=== PATIENT | male | born 1975 | race Native Hawaiian/Other Pacific Islander ===

== ENCOUNTER 2019-02-22 15:35 | Inpatient (IN) | payer MEDICAID ==
[~2019-02-22] VITALS: Ht 177.8 cm; Wt 70.4 kg
[2019-02-23 00:10] VITALS: BP 122/74
[2019-02-23] MEDS: ZOLPIDEM TARTRATE 10 MG TABLET PO PRN (00:57)
[2019-02-23] MEDS: HALOPERIDOL 5 MG TABLET PO PRN (05:57)
[2019-02-23] MEDS: LORazepam 2 MG TABLET PO PRN (05:57)
[2019-02-23] MEDS ORDERED: MAGNESIUM HYDROXIDE SUSPENSION 30 ML UDCUP PO PRN (07:00)
[2019-02-23] MEDS ORDERED: DOCUSATE SODIUM 100 MG CAPSULE PO PRN (07:00)
[2019-02-23] MEDS ORDERED: ONDANSETRON HCL 4 MG TABLET PO PRN (07:00)
[2019-02-23] MEDS ORDERED: MAG HYDROX/AL HYDROX/SIMETH ES 30 ML SUSPENSION UDCUP PO PRN (07:00)
[2019-02-23] MEDS ORDERED: GuaiFENesin/D-METHORPHAN [SUGAR-FREE] 200-20MG/10 ML SYRUP UDCUP PO PRN (07:00)
[2019-02-23] MEDS ORDERED: LOPERAMIDE HCL 2 MG CAPSULE PO PRN (07:00)
[2019-02-23] MEDS ORDERED: PETROLATUM,WHITE 28 GM JELLY TP PRN (07:00)
[2019-02-23] MEDS ORDERED: NICOTINE 14 MG/24 HOUR PATCH TD PRN (07:00)
[2019-02-23] MEDS ORDERED: CloNIDine HCL 0.1 MG TABLET PO PRN (07:00)
[2019-02-23 08:05] LABS: BASOPHILS % (AUTO) 1.3 % (0.0-2.0); EOSINOPHILS % (AUTO) 3.1 % (1.0-6.0); HEMATOCRIT 41.7 % (41-53); HEMOGLOBIN 13.9 g/dL (13.5-17.5); LYMPHOCYTES # (AUTO) 1.1 K/uL (1.0-4.8); LYMPHOCYTES % (AUTO) 26.5 % (22.0-44.0); MEAN CORPUSCULAR HEMOGLOBIN 32.6 pg (26.0-34.0); MEAN CORPUSCULAR HGB CONC 33.3 G/dL (31.0-37.0); MEAN CORPUSCULAR VOLUME 98 fL (80-100); MONOCYTES # (AUTO) 0.6 K/uL (0.1-1.0); MONOCYTES % (AUTO) 15.9 % (2.0-9.0); NEUTROPHILS # (AUTO) 2.1 K/uL (1.8-7.7); NEUTROPHILS % (AUTO) 53.2 % (40.0-70.0); PLATELET COUNT (AUTO) 268 K/uL (150-450); RED BLOOD CELL COUNT(AUTO) 4.26 MIL/uL (4.50-5.90); RED CELL DISTRIBUTION WIDTH 13.2 % (11.5-14.5)
[2019-02-23 08:08] LABS: HEMOGLOBIN A1C 5.4 % (4.5-6.2)
[2019-02-23 08:29] VITALS: BP 115/62
[2019-02-23 08:40] LABS: ALANINE AMINOTRANSFERASE 32 U/L (12-78); ALBUMIN 3.3 g/dL (3.4-5.0); ALKALINE PHOSPHATASE 68 U/L (46-116); ANION GAP 11 mmol/L (8-16); ASPARTATE AMINOTRANSFERASE 22 U/L (15-37); BILIRUBIN,TOTAL 0.5 mg/dL (0.1-1.0); CARBON DIOXIDE 23 mmol/L (22-29); CHLORIDE 101 mmol/L (98-107); CHOL/HDL RATIO 2.5 (4.2-7.3); CHOLESTEROL 150 mg/dL (131-200); CREATININE 1.27 mg/dL (0.60-1.30); FREE T4 (FREE THYROXINE) 1.23 ng/dL (0.76-1.46); GLOMERULAR FILTR. RATE CALC > 60 mL/min (>60); GLUCOSE,RANDOM 91 mg/dL (70-110); HDL CHOLESTEROL 61 mg/dL (40-60); LDL CHOL (CALC.) 83 mg/dL (0-130); POTASSIUM 4.5 mmol/L (3.5-5.1); SODIUM SERUM 135 mmol/L (136-145); THYROID STIMULATING HORMONE 0.93 uIU/mL (0.36-3.74); TOTAL PROTEIN, SERUM 6.4 g/dL (6.4-8.2); TRIGLYCERIDES 29 mg/dL (15-150); UREA NITROGEN, BLOOD 15 mg/dL (7-18)
[2019-02-23] MEDS: DIVALPROEX SODIUM 500 MG DR TABLET PO SCH ×2 (10:08→16:02)
[2019-02-23] MEDS: ALBUTEROL SULFATE HFA 90 MCG/PUFF 8 GM INHALER IH PRN (10:15)
[2019-02-23 16:23] VITALS: BP 114/64
[2019-02-23 17:21] VITALS: BP 125/61
[2019-02-23] MEDS: QUEtiapine FUMARATE 200 MG TABLET PO SCH (21:46)
[2019-02-24] MEDS: ALBUTEROL SULFATE HFA 90 MCG/PUFF 8 GM INHALER IH PRN ×2 (06:34→12:42)
[2019-02-24 08:33] VITALS: BP 118/64
[2019-02-24] MEDS: DIVALPROEX SODIUM 500 MG DR TABLET PO SCH ×2 (08:33→16:16)
[2019-02-24] MEDS: IBUPROFEN 400 MG TABLET PO PRN (08:33)
[2019-02-24] MEDS: ACETAMINOPHEN 325 MG TABLET PO PRN (12:40)
[2019-02-24 16:07] VITALS: BP 123/70
[2019-02-24] MEDS: LORazepam 2 MG TABLET PO PRN (18:56)
[2019-02-24] MEDS: HALOPERIDOL 5 MG TABLET PO PRN (19:27)
[2019-02-24] MEDS: QUEtiapine FUMARATE 200 MG TABLET PO SCH (20:05)
[2019-02-24] MEDS: ZOLPIDEM TARTRATE 10 MG TABLET PO PRN (20:34)
[2019-02-25 05:20] VITALS: BP 107/60
[2019-02-25] MEDS: ACETAMINOPHEN 325 MG TABLET PO PRN ×2 (05:25→15:59)
[2019-02-25] MEDS: ALBUTEROL SULFATE HFA 90 MCG/PUFF 8 GM INHALER IH PRN ×2 (05:26→16:02)
[2019-02-25] MEDS: QUEtiapine FUMARATE 200 MG TABLET PO SCH ×2 (09:14→20:21)
[2019-02-25] MEDS: DIVALPROEX SODIUM 500 MG DR TABLET PO SCH ×2 (09:14→15:59)
[2019-02-25 09:59] VITALS: BP 106/52
[2019-02-25 16:03] VITALS: BP 102/60
[2019-02-25] MEDS: HALOPERIDOL 5 MG TABLET PO PRN (19:56)
[2019-02-25] MEDS: LORazepam 2 MG TABLET PO PRN (19:56)
[2019-02-25] MEDS: ZOLPIDEM TARTRATE 10 MG TABLET PO PRN (22:27)
[2019-02-26 02:55] VITALS: BP 101/53
[2019-02-26] MEDS: ACETAMINOPHEN 325 MG TABLET PO PRN (03:00)
[2019-02-26 05:45] VITALS: BP 108/53
[2019-02-26] MEDS: IBUPROFEN 400 MG TABLET PO PRN (05:50)
[2019-02-26] MEDS: QUEtiapine FUMARATE 200 MG TABLET PO SCH ×2 (08:45→20:13)
[2019-02-26] MEDS: DIVALPROEX SODIUM 500 MG DR TABLET PO SCH ×2 (08:45→17:22)
[2019-02-26 09:41] VITALS: BP 129/78
[2019-02-26] MEDS: ALBUTEROL SULFATE HFA 90 MCG/PUFF 8 GM INHALER IH PRN (15:33)
[2019-02-26 16:20] VITALS: BP 118/68
[2019-02-26] MEDS: LORazepam 2 MG TABLET PO PRN (18:01)
[2019-02-26] MEDS: ZOLPIDEM TARTRATE 10 MG TABLET PO PRN (20:53)
[2019-02-27] MEDS: QUEtiapine FUMARATE 200 MG TABLET PO SCH ×2 (08:22→20:07)
[2019-02-27] MEDS: DIVALPROEX SODIUM 500 MG DR TABLET PO SCH ×2 (08:22→16:19)
[2019-02-27] MEDS: ALBUTEROL SULFATE HFA 90 MCG/PUFF 8 GM INHALER IH PRN ×2 (08:24→14:33)
[2019-02-27 12:45] VITALS: BP 117/67
[2019-02-27] MEDS: LORazepam 2 MG TABLET PO PRN (16:19)
[2019-02-27 16:29] VITALS: BP 131/74
[2019-02-27] MEDS: ZOLPIDEM TARTRATE 10 MG TABLET PO PRN (21:08)
[2019-02-28] MEDS: ALBUTEROL SULFATE HFA 90 MCG/PUFF 8 GM INHALER IH PRN (03:24)
[2019-02-28] MEDS: ACETAMINOPHEN 325 MG TABLET PO PRN (03:24)
[2019-02-28 08:10] VITALS: BP 121/74
[2019-02-28] MEDS: QUEtiapine FUMARATE 200 MG TABLET PO SCH ×2 (08:16→20:54)
[2019-02-28] MEDS: LORazepam 2 MG TABLET PO PRN ×2 (08:16→12:37)
[2019-02-28] MEDS: DIVALPROEX SODIUM 500 MG DR TABLET PO SCH ×2 (08:16→16:41)
[2019-02-28] MEDS: HALOPERIDOL 5 MG TABLET PO PRN (12:37)
[2019-03-01] MEDS: ACETAMINOPHEN 325 MG TABLET PO PRN (05:03)
[2019-03-01 08:05] VITALS: BP 116/75
[2019-03-01] MEDS: QUEtiapine FUMARATE 200 MG TABLET PO SCH ×2 (08:11→20:46)
[2019-03-01] MEDS: DIVALPROEX SODIUM 250 MG DR TABLET PO SCH ×2 (08:11→20:46)
[2019-03-01] MEDS: ALBUTEROL SULFATE HFA 90 MCG/PUFF 8 GM INHALER IH PRN ×2 (08:14→15:50)
[2019-03-01] MEDS: HALOPERIDOL 5 MG TABLET PO PRN (10:35)
[2019-03-01] MEDS: LORazepam 2 MG TABLET PO PRN (10:35)
[2019-03-01] MEDS: ZOLPIDEM TARTRATE 10 MG TABLET PO PRN (23:44)
[2019-03-02] MEDS: ACETAMINOPHEN 325 MG TABLET PO PRN (05:38)
[2019-03-02] MEDS: DIVALPROEX SODIUM 250 MG DR TABLET PO SCH ×2 (08:58→21:03)
[2019-03-02] MEDS: QUEtiapine FUMARATE 200 MG TABLET PO SCH ×2 (08:58→21:03)
[2019-03-02 09:00] VITALS: BP 129/67
[2019-03-02] MEDS: ALBUTEROL SULFATE HFA 90 MCG/PUFF 8 GM INHALER IH PRN (09:19)
[2019-03-02 16:15] VITALS: BP 109/65
[2019-03-02] MEDS: LORazepam 2 MG TABLET PO PRN (16:17)
[2019-03-02] MEDS: HALOPERIDOL 5 MG TABLET PO PRN (16:17)
[2019-03-02] MEDS: ZOLPIDEM TARTRATE 10 MG TABLET PO PRN (21:03)
[2019-03-03] MEDS: ALBUTEROL SULFATE HFA 90 MCG/PUFF 8 GM INHALER IH PRN ×2 (05:17→22:40)
[2019-03-03 08:00] VITALS: BP 129/71
[2019-03-03] MEDS: DIVALPROEX SODIUM 250 MG DR TABLET PO SCH ×2 (08:24→20:35)
[2019-03-03] MEDS: QUEtiapine FUMARATE 200 MG TABLET PO SCH ×2 (08:24→20:35)
[2019-03-03] MEDS: LORazepam 2 MG TABLET PO PRN (08:24)
[2019-03-03 16:53] VITALS: BP 124/76
[2019-03-03] MEDS: ACETAMINOPHEN 325 MG TABLET PO PRN (16:58)
[2019-03-04 05:53] VITALS: BP 103/58
[2019-03-04] MEDS: ALBUTEROL SULFATE HFA 90 MCG/PUFF 8 GM INHALER IH PRN (06:04)
[2019-03-04] MEDS: LORazepam 2 MG TABLET PO PRN ×2 (07:49→16:11)
[2019-03-04 08:00] VITALS: BP 127/60
[2019-03-04] MEDS: QUEtiapine FUMARATE 200 MG TABLET PO SCH ×2 (08:13→20:09)
[2019-03-04] MEDS: DIVALPROEX SODIUM 250 MG DR TABLET PO SCH ×2 (08:14→20:09)
[2019-03-04] MEDS: HALOPERIDOL 5 MG TABLET PO PRN (16:11)
[2019-03-04 16:33] VITALS: BP 111/60
[2019-03-04] MEDS: ZOLPIDEM TARTRATE 10 MG TABLET PO PRN (20:31)
[2019-03-05] MEDS: LORazepam 2 MG TABLET PO PRN (03:02)
[2019-03-05 03:04] VITALS: BP 124/68
[2019-03-05 08:32] VITALS: BP 116/68
[2019-03-05] MEDS: DIVALPROEX SODIUM 250 MG DR TABLET PO SCH ×2 (08:34→20:13)
[2019-03-05] MEDS: QUEtiapine FUMARATE 200 MG TABLET PO SCH ×2 (08:34→20:13)
[2019-03-05] MEDS: ALBUTEROL SULFATE HFA 90 MCG/PUFF 8 GM INHALER IH PRN ×2 (11:47→20:13)
[2019-03-05 16:00] VITALS: BP 106/69
[2019-03-06] MEDS: ZOLPIDEM TARTRATE 10 MG TABLET PO PRN (02:52)
[2019-03-06 08:00] VITALS: BP 114/69
[2019-03-06] MEDS: DIVALPROEX SODIUM 250 MG DR TABLET PO SCH ×2 (09:35→20:17)
[2019-03-06] MEDS: LORazepam 2 MG TABLET PO PRN (09:35)
[2019-03-06] MEDS: QUEtiapine FUMARATE 200 MG TABLET PO SCH ×2 (09:35→20:17)
[2019-03-06] MEDS: ALBUTEROL SULFATE HFA 90 MCG/PUFF 8 GM INHALER IH PRN ×2 (12:17→20:18)
[2019-03-07] MEDS: ZOLPIDEM TARTRATE 10 MG TABLET PO PRN ×2 (01:38→20:33)
[2019-03-07 01:41] VITALS: BP 110/64
[2019-03-07] MEDS: ALBUTEROL SULFATE HFA 90 MCG/PUFF 8 GM INHALER IH PRN (01:41)
[2019-03-07 06:12] VITALS: BP 102/67
[2019-03-07] MEDS: ACETAMINOPHEN 325 MG TABLET PO PRN (06:16)
[2019-03-07 08:00] VITALS: BP 127/78
[2019-03-07] MEDS: LORazepam 2 MG TABLET PO PRN ×2 (08:20→12:25)
[2019-03-07] MEDS: QUEtiapine FUMARATE 200 MG TABLET PO SCH ×2 (08:20→20:30)
[2019-03-07] MEDS: DIVALPROEX SODIUM 250 MG DR TABLET PO SCH ×2 (08:21→20:30)
[2019-03-07] MEDS: HALOPERIDOL 5 MG TABLET PO PRN (12:25)
[2019-03-07 16:05] VITALS: BP 111/60
[2019-03-08] MEDS: ALBUTEROL SULFATE HFA 90 MCG/PUFF 8 GM INHALER IH PRN (06:19)
[2019-03-08] MEDS: LORazepam 2 MG TABLET PO PRN (07:59)
[2019-03-08] MEDS: HALOPERIDOL 5 MG TABLET PO PRN (07:59)
[2019-03-08] MEDS: QUEtiapine FUMARATE 200 MG TABLET PO SCH ×2 (08:00→20:40)
[2019-03-08] MEDS: DIVALPROEX SODIUM 250 MG DR TABLET PO SCH ×2 (09:07→20:40)
[2019-03-08 09:52] VITALS: BP 111/67
[2019-03-08 16:43] VITALS: BP 129/100
[2019-03-09] MEDS: ACETAMINOPHEN 325 MG TABLET PO PRN (05:46)
[2019-03-09] MEDS: ALBUTEROL SULFATE HFA 90 MCG/PUFF 8 GM INHALER IH PRN ×2 (05:48→16:13)
[2019-03-09 05:49] VITALS: BP 120/73
[2019-03-09] MEDS: LORazepam 2 MG TABLET PO PRN ×2 (08:03→12:06)
[2019-03-09] MEDS: DIVALPROEX SODIUM 250 MG DR TABLET PO SCH ×2 (08:04→20:29)
[2019-03-09] MEDS: QUEtiapine FUMARATE 200 MG TABLET PO SCH ×2 (08:04→20:29)
[2019-03-09 08:45] VITALS: BP 127/85
[2019-03-09] MEDS: HALOPERIDOL 5 MG TABLET PO PRN (12:06)
[2019-03-09 16:18] VITALS: BP 129/74
[2019-03-10] MEDS: ACETAMINOPHEN 325 MG TABLET PO PRN (05:58)
[2019-03-10] MEDS: ALBUTEROL SULFATE HFA 90 MCG/PUFF 8 GM INHALER IH PRN (06:47)
[2019-03-10 08:27] VITALS: BP 126/65
[2019-03-10] MEDS: QUEtiapine FUMARATE 200 MG TABLET PO SCH (08:44)
[2019-03-10] MEDS: DIVALPROEX SODIUM 250 MG DR TABLET PO SCH (08:45)
[2019-03-10] MEDS ORDERED: QUET200T29 PO (09:36)
[2019-03-10] MEDS ORDERED: DIVA-76 PO (09:36)
== END 2019-03-10 15:45 | disposition home or self-care (01) | DRG 750 ==
LOC: B2S 23:15 → 3EI 02-23 16:43 → 3EC 02-24 18:00
DX: F25.0 Schizoaffective disorder, bipolar type (principal); Z91.19 Patient's noncompliance with other medical treatment and regimen; F10.20 Alcohol dependence, uncomplicated; G44.209 Tension-type headache, unspecified, not intractable; M25.431 Effusion, right wrist; S62.101A Fracture of unspecified carpal bone, right wrist, initial encounter for closed fracture; Y92.89 Other specified places as the place of occurrence of the external cause; Y99.8 Other external cause status; Z79.899 Other long term (current) drug therapy
CPT/HCPCS: 83036; 84439; 84443; 97165; J3535

== ENCOUNTER 2019-03-22 13:43 | Emergency (ER) | payer MEDICAID ==
[~2019-03-22] VITALS: Ht 177.8 cm; Wt 69.0 kg
[~2019-03-22 13:43] MED LIST: DIVA-76 PO; QUET200T29 PO
[2019-03-22 14:19] LABS: BASOPHILS % (AUTO) 0.9 % (0.0-2.0); EOSINOPHILS % (AUTO) 0.9 % (1.0-6.0); HEMATOCRIT 45.3 % (41-53); HEMOGLOBIN 15.2 g/dL (13.5-17.5); LYMPHOCYTES # (AUTO) 0.7 K/uL (1.0-4.8); LYMPHOCYTES % (AUTO) 10.8 % (22.0-44.0); MEAN CORPUSCULAR HEMOGLOBIN 32.1 pg (26.0-34.0); MEAN CORPUSCULAR HGB CONC 33.6 G/dL (31.0-37.0); MEAN CORPUSCULAR VOLUME 96 fL (80-100); MONOCYTES # (AUTO) 0.9 K/uL (0.1-1.0); MONOCYTES % (AUTO) 15.3 % (2.0-9.0); NEUTROPHILS # (AUTO) 4.4 K/uL (1.8-7.7); NEUTROPHILS % (AUTO) 72.1 % (40.0-70.0); PLATELET COUNT (AUTO) 282 K/uL (150-450); RED BLOOD CELL COUNT(AUTO) 4.74 MIL/uL (4.50-5.90); RED CELL DISTRIBUTION WIDTH 13.2 % (11.5-14.5)
[2019-03-22 14:31] LABS: ANION GAP 12 mmol/L (8-16); CALCIUM, TOTAL 8.9 mg/dL (8.8-10.5); CARBON DIOXIDE 26 mmol/L (22-29); CHLORIDE 104 mmol/L (98-107); CREATININE 1.06 mg/dL (0.60-1.30); GLOMERULAR FILTR. RATE CALC > 60 mL/min (>60); GLUCOSE,RANDOM 95 mg/dL (70-110); POTASSIUM 3.9 mmol/L (3.5-5.1); SODIUM SERUM 142 mmol/L (136-145); UREA NITROGEN, BLOOD 6 mg/dL (7-18)
[2019-03-22 14:37] LABS: ALANINE AMINOTRANSFERASE 39 U/L (12-78); ALBUMIN 3.6 g/dL (3.4-5.0); ALKALINE PHOSPHATASE 66 U/L (46-116); ASPARTATE AMINOTRANSFERASE 40 U/L (15-37); BILIRUBIN,TOTAL 0.5 mg/dL (0.1-1.0); TOTAL PROTEIN, SERUM 7.7 g/dL (6.4-8.2)
[2019-03-22 16:12] LABS: AMPHET/METH SCREEN,URINE NEGATIVE (NEGATIVE); BARBITURATE SCREEN, URINE NEGATIVE (NEGATIVE); BENZODIAZEPINES SCREEN,URINE NEGATIVE (NEGATIVE); CANNABINOID SCREEN,URINE NEGATIVE (NEGATIVE); COCAINE SCREEN,URINE NEGATIVE (NEGATIVE); METHADONE SCREEN, URINE NEGATIVE (NEGATIVE); OPIATE SCREEN,URINE NEGATIVE (NEGATIVE)
[2019-03-22 16:18] LABS: PHENCYCLIDINE SCREEN,URINE NEGATIVE (NEGATIVE)
[2019-03-22 17:30] VITALS: BP 125/89
[2019-03-22] MEDS ORDERED: DIVALPROEX SODIUM 500 MG ER TABLET PO ONE (18:15)
[2019-03-22] MEDS ORDERED: QUEtiapine FUMARATE 100 MG TABLET PO ONE (18:15)
== END 2019-03-22 18:59 | disposition home or self-care (01) ==
LOC: EMS 13:46
DX: F25.9 Schizoaffective disorder, unspecified (principal)
CPT/HCPCS: 36415; 80053; 80307; 85025; 99285; G0480